=== PATIENT | female | born 1975 | race Caucasian/White ===

== ENCOUNTER 2018-02-20 11:00 | Emergency (ER) | payer OTHER ==
[~2018-02-20] VITALS: Ht 172.7 cm; Wt 115.7 kg
[2018-02-20] MEDS ORDERED: BUTALB-APAP-CA1 EACH PO (11:05)
[2018-02-20] MEDS ORDERED: UNICOMPLEX M TA1 TA1 PO (11:05)
[2018-02-20 11:25] LABS: ABSOLUTE NEUTROPHILS 5.8 thou/uL (1.4-8.2); HEMOGLOBIN 14.3 gm/dL (12.0-15.0); LYMPHOCYTES 22.6 % (24.0-44.0); MCH 31.3 pg (26.0-34.0); MCHC 34.8 g/dL (28.0-37.0); MONOCYTES 6.9 % (1.0-8.0); PLATELET COUNT 304 thou/uL (150-400); POLYS 68.5 % (36.0-66.0); RBC 4.56 mil/uL (4.20-5.00); RDW 13.4 % (10.5-14.5); WBC 8.5 thou/uL (4.0-11.0)
[2018-02-20 11:31] LABS: CALCIUM 9.1 mg/dL (8.5-10.1); CREATININE 0.8 mg/dL (0.6-1.0); POTASSIUM 4.1 mmol/L (3.5-5.1)
[2018-02-20] MEDS ORDERED: REGLAN 10 MG TA10 MG PO (12:46)
[2018-02-20 13:43] VITALS: BP 133/68
== END 2018-02-20 13:43 | disposition home or self-care (01) ==
LOC: ER 11:00
PROVIDERS: Physician Assistant
DX: G43.909 Migraine, unspecified, not intractable, without status migrainosus (principal); Z90.49 Acquired absence of other specified parts of digestive tract; Z90.710 Acquired absence of both cervix and uterus; Z91.041 Radiographic dye allergy status; Z88.2 Allergy status to sulfonamides; Z91.048 Other nonmedicinal substance allergy status